=== PATIENT | male | born 1950 | race Caucasian/White ===

== ENCOUNTER 2021-02-27 19:07 | Inpatient (IN) | payer OTHER, MEDICAID, SELFPAY ==
[~2021-02-27] VITALS: Ht 177.8 cm; Wt 127.1 kg
[2021-02-27 19:07] VITALS: BP_SYST 120
--- NOTE | 2021-02-27 19:10 | NUR ---
Received patient to ER via EMS ambulance w/ c/o mis-firing of his defibrillator x2 (1 while cooking and #2 while at rest watching Television). Patient resting comfortably at this time in no acute distress. Bed to low position sr up. placed on direct casting operator, AV paced rhythm. Patient resting quietly. No acute distress noted. Vital signs within normal range.
[2021-02-27 19:56] LABS: EOSINOPHILS # (AUTO) 0.1 K/uL (0.0-0.4); HEMOGLOBIN 9.5 g/dL (14.0-18.0); MEAN CORPUSCULAR VOLUME 96 fL (79.0-98.0); MONOCYTES # (AUTO) 0.3 K/uL (0.0-1.0); NEUTROPHILS # (AUTO) 1.4 K/uL (1.8-7.7); WHITE BLOOD COUNT (AUTO) 2.3 K/uL (4.8-10.8)
[2021-02-27 20:05] LABS: BASOPHILS % (AUTO) 0.9 % (0.0-2.0); EOSINOPHILS % (AUTO) 3.6 % (0.0-4.0); HEMATOCRIT 27.7 % (36-54); LYMPHOCYTES # (AUTO) 0.6 K/uL (1.0-5.5); LYMPHOCYTES % (AUTO) 23.5 % (20.5-51.5); MEAN CORPUSCULAR HEMOGLOBIN 33 pg (27-31); MEAN CORPUSCULAR HGB CONC 34 % (32-36); MONOCYTES % (AUTO) 12.6 % (1.7-9.3); NEUTROPHILS % (AUTO) 59.4 % (40.0-70.0); PLATELET COUNT (AUTO) 90 K/uL (130-430); RED BLOOD CELL COUNT(AUTO) 2.88 MIL/uL (4.2-6.2); RED CELL DISTRIBUTION WIDTH 15.8 % (9.0-15.0)
[2021-02-27 20:22] LABS: CALCIUM 7.8 mg/dL (8.4-11.0); CREATININE 3.84 mg/dL (0.55-1.30); POTASSIUM 4.2 mmol/L (3.5-5.1)
[2021-02-27 20:27] LABS: ALBUMIN 2.3 g/dL (3.4-4.8); TOTAL BILIRUBIN 0.7 mg/dL (0.0-1.0)
--- NOTE | 2021-02-27 21:16 | NUR ---
Patient resting quietly. No acute distress noted. Vital signs within normal range.
[2021-02-27] MEDS ORDERED: HYDROcodone/ACETAMIN 5-325 MG TAB (NORCO/ VICODIN) PO PRN (22:30)
[2021-02-27] MEDS ORDERED: ACETAMINOPHEN 325 MG TABLET PO PRN (22:30)
[2021-02-27] MEDS ORDERED: ALBUTEROL SULFATE 0.083% 2.5 MG/3 ML VIAL.NEB INH PRN (22:30)
--- NOTE | 2021-02-27 23:11 | NUR ---
Patient resting quietly. No acute distress noted. Vital signs within normal range.
[2021-02-27] MEDS ORDERED: REPA0.5T6 PO (23:32)
[2021-02-27] MEDS ORDERED: COR12.5 PO (23:32)
[2021-02-27] MEDS ORDERED: FURO20TA4 PO (23:32)
[2021-02-27] MEDS ORDERED: LEVO50TA8 PO (23:32)
[2021-02-27] MEDS ORDERED: SAXA5TAB PO (23:32)
[2021-02-27] MEDS ORDERED: FENO145T PO (23:32)
[2021-02-27] MEDS ORDERED: APIX5TAB PO (23:32)
[2021-02-27] MEDS ORDERED: AMIO200T66 PO (23:32)
[2021-02-27] MEDS ORDERED: CHOL20009 PO (23:32)
[2021-02-27] MEDS ORDERED: ATOR40TA68 PO (23:32)
--- NOTE | 2021-02-27 23:32 | NUR ---
Medication reconciliation completed with information provided by patient's list. Any prior medication reconciliation on file was reviewed and corrected.
[2021-02-28] VITALS (8 sets, daily range): BP systolic 114–133
--- NOTE | 2021-02-28 00:31 | NUR ---
Patient will be admitted to care of Dr. Moody. Admitted to Telemetry OBS unit.
--- NOTE | 2021-02-28 01:08 | NUR ---
Patient resting quietly. No acute distress noted. Vital signs within normal range.
--- NOTE | 2021-02-28 01:46 | NUR ---
Patient will be admitted to care of MD Moody. Admitted to Tele/ob unit. Will go to room 128B. Belongings list completed. Complete and up to date summary report printed. SBAR report to be given at bedside with opportunity for questions.
--- NOTE | 2021-02-28 02:20 | NUR ---
Patient will be admitted to care of Fransisco. Admitted to tele/obs unit. Will go to room 128A. Belongings list completed. Complete and up to date summary report printed. SBAR report to be given at bedside with opportunity for questions.
--- NOTE | 2021-02-28 02:30 | NUR ---
pt.received via er-dept.pt.presents chf exacerbation.pt.presents h/d hx.h/d access location rt.svc.dsg intact.pt.present iv access location lt.hand iv lock.pt.stated he submitted to h/d session;.pt.weighed upon arrival per h/d protocol. pt.capable to reposition self/ambulate unassisted.diet status cardiac.pt.apprised snacks/beverages are available w/in the shift.general status stable.respiratory status stable;unlabored@room air.call light/telephone placed w/in access of the pt.
--- NOTE | 2021-02-28 02:36 | NUR ---
ADMISSION NOTE Received patient from ER via gurney. Patient admitted with diagnosis of Arrhythmia, CHF, Renal Failure. Patient is awake, alert, oriented X 4. Patient oriented to hospital room, call light, toileting, pain management and safety-teach back done. Patient informed that MILES Singh will be primary nurse and that their room number is 128A. Personal belongings checked and Belongings List documented. Call light within reach.
--- NOTE | 2021-02-28 04:36 | NUR ---
CONSULTATION PAGED/CALLED Reason for Consultation: ARRYTHMIA Person Who was Notified: AMY Consulting Physician: JULIA Infrastructure Technician Specialty: Ordering Physician: BRODERICK
[2021-02-28 06:24] LABS: EOSINOPHILS # (AUTO) 0.1 K/uL (0.0-0.4); EOSINOPHILS % (AUTO) 4.5 % (0.0-4.0); HEMATOCRIT 27.6 % (36-54); HEMOGLOBIN 9.4 g/dL (14.0-18.0); LYMPHOCYTES # (AUTO) 0.7 K/uL (1.0-5.5); LYMPHOCYTES % (AUTO) 24.5 % (20.5-51.5); MEAN CORPUSCULAR HEMOGLOBIN 33 pg (27-31); MEAN CORPUSCULAR HGB CONC 34 % (32-36); MEAN CORPUSCULAR VOLUME 97 fL (79.0-98.0); MONOCYTES # (AUTO) 0.4 K/uL (0.0-1.0); MONOCYTES % (AUTO) 12.2 % (1.7-9.3); NEUTROPHILS # (AUTO) 1.7 K/uL (1.8-7.7); NEUTROPHILS % (AUTO) 57.8 % (40.0-70.0); PLATELET COUNT (AUTO) 94 K/uL (130-430); RED BLOOD CELL COUNT(AUTO) 2.84 MIL/uL (4.2-6.2); RED CELL DISTRIBUTION WIDTH 16.1 % (9.0-15.0)
--- NOTE | 2021-02-28 06:30 | NUR ---
pt.stated he is diabetic.blood glucose assessed x3;values 66,68,69mg/dl.no insulin protocol ordered.pt.stated he was asymptomatic no weakness,thought process coherent.pt.refused snacks.to trace heartin am.v/s assessed values wnl.no c/o pain,nausea.no requests posited@this hour.call light/telephone w/in access of the pt.
[2021-02-28 06:38] LABS: ALBUMIN 2.2 g/dL (3.4-4.8); CALCIUM 7.7 mg/dL (8.4-11.0); CREATININE 4.12 mg/dL (0.55-1.30); POTASSIUM 4.2 mmol/L (3.5-5.1); TOTAL BILIRUBIN 0.8 mg/dL (0.0-1.0)
[2021-02-28] MEDS ORDERED: ATORVASTATIN 20 MG TABLET PO ONE (09:00)
[2021-02-28] MEDS ORDERED: LEVOTHYROXINE SODIUM 0.05 MG TABLET PO ONE (09:00)
[2021-02-28] MEDS ORDERED: CARVEDILOL 12.5 MG TABLET (COREG) PO ONE (09:00)
[2021-02-28] MEDS ORDERED: REPAGLINIDE 0.5 MG PO SCH (09:00)
[2021-02-28] MEDS ORDERED: APIXABAN 2.5 MG TABLET PO ONE (10:00)
[2021-02-28] MEDS ORDERED: AMIODARONE HCL 200 MG TABLET PO ONE (10:00)
[2021-02-28] MEDS ORDERED: FENOFIBRATE 160 MG TABLET PO ONE (10:00)
--- NOTE | 2021-02-28 10:34 | NUR ---
SPOKE TO DR BAUTISTA, NOTIFIED THAT PATIENT HAS HISTORY OF DIABETES BUT THAT MORNING BG WAS 69, STATED TO ORDER REGULAR INSULIN SLIDING SCALE ACHS, IN ADDITION TOLD HIM THAT PATIENT RECEIVED DIALYSIS SO IF HE WANTS TO GET NEPHROLOGY ON BOARD BUT PATIENT DOES NOT KNOW WHO HIS POLYGRAPH EXAMINER IS BUT THAT HE RECEIVES HIS DIALYSIS AT [facility], LILY STATED HE WILL ASSESS THE PATIENT AND GO FROM THERE.
[2021-02-28] MEDS ORDERED: DEXTROSE 50% JECT 50 ML DISP.SYRIN IVP PRN (10:45)
[2021-02-28] MEDS ORDERED: GLUCOSE (DEXTROSE) ORAL GEL -Adults PO PRN (10:45)
[2021-02-28] MEDS ORDERED: INSULIN REGULAR, HUMAN 100 UNITS/ML, 10 ML VIAL (humuLIN R) SUBCUT PRN (10:45)
[2021-02-28] MEDS ORDERED: D5W 1,000 ML IV PRN (10:45)
--- NOTE | 2021-02-28 11:12 | NUR ---
Nutrition Update Donald Scale 18 noted. Pt admitted for CHF, renal failure. Diet: cardiac BMI: 40 kg/m2 RD to follow per nutrition care standards.
--- NOTE | 2021-02-28 12:34 | NUR ---
CONSULTATION PAGED/CALLED Reason for Consultation: ESRD Person Who was Notified:TIARRA Consulting Physician: SAGAR Spray Stainer Specialty: NEPHRO Ordering Physician: LILY
--- NOTE | 2021-02-28 13:49 | NUR ---
CONSULTATION PAGED/CALLED Reason for Consultation: [] ESRD Person Who was Notified: [] SHERRI Consulting Physician: [] DR FRAZIER Retail Product Advisor Specialty: [] ASSOCIATE DIRECTOR QA Ordering Physician: [] DR BAUTISTA
--- NOTE | 2021-02-28 19:15 | NUR ---
OPENING NOTES: Received patient report from morning shift nurse. Patient in bed, AAOx4, breathing evenly and nonlabored on room air, no s/s of distress. Patient has an IV on the LH 22G, patent, benign, and flushing. No s/s of infection or infiltration. Educated patient on plan of care and call light use. Patient verbalized understanding with return demonstration. Fall/safety precaution. Will continue to monitor.
[2021-02-28] MEDS: APIXABAN 2.5 MG TABLET PO SCH (21:29)
[2021-02-28] MEDS: CARVEDILOL 12.5 MG TABLET (COREG) PO SCH (21:31)
[2021-02-28] MEDS: AMIODARONE HCL 200 MG TABLET PO SCH (21:31)
[2021-03-01] VITALS: BP_SYST 128
--- NOTE | 2021-03-01 | NUR ---
ROUNDS: Patient in bed, eyes closed, breathing evenly and nonlabored on room air, no s/s of distress. Will continue to monitor.
[2021-03-01 06:19] LABS: BASOPHILS % (AUTO) 0.9 % (0.0-2.0); EOSINOPHILS # (AUTO) 0.1 K/uL (0.0-0.4); EOSINOPHILS % (AUTO) 4.3 % (0.0-4.0); HEMATOCRIT 27.3 % (36-54); HEMOGLOBIN 9.1 g/dL (14.0-18.0); LYMPHOCYTES # (AUTO) 0.8 K/uL (1.0-5.5); LYMPHOCYTES % (AUTO) 25.5 % (20.5-51.5); MEAN CORPUSCULAR HEMOGLOBIN 33 pg (27-31); MEAN CORPUSCULAR HGB CONC 34 % (32-36); MEAN CORPUSCULAR VOLUME 98 fL (79.0-98.0); MONOCYTES # (AUTO) 0.3 K/uL (0.0-1.0); NEUTROPHILS # (AUTO) 1.8 K/uL (1.8-7.7); NEUTROPHILS % (AUTO) 59.3 % (40.0-70.0); PLATELET COUNT (AUTO) 91 K/uL (130-430); RED BLOOD CELL COUNT(AUTO) 2.79 MIL/uL (4.2-6.2); RED CELL DISTRIBUTION WIDTH 15.9 % (9.0-15.0); WHITE BLOOD COUNT (AUTO) 3.1 K/uL (4.8-10.8)
--- NOTE | 2021-03-01 06:57 | NUR ---
CLOSING NOTES: Patient in bed, AAOx4, breathing evenly and nonlabored on room air, no s/s of distress. Patient has an IV on the LH 22G, patent, benign, and flushing. No s/s of infection or infiltration. Fall/safety precaution. Will continue to monitor and endorse care to morning shift nurse.
[2021-03-01] MEDS ORDERED: LEVOTHYROXINE SODIUM 0.05 MG TABLET PO SCH (07:00)
[2021-03-01 07:06] LABS: ALBUMIN 2.1 g/dL (3.4-4.8); CALCIUM 7.4 mg/dL (8.4-11.0); CREATININE 4.88 mg/dL (0.55-1.30); PHOSPHORUS 4.7 mg/dL (2.7-4.5); POTASSIUM 4.4 mmol/L (3.5-5.1); TOTAL BILIRUBIN 1.1 mg/dL (0.0-1.0)
--- NOTE | 2021-03-01 07:25 | NUR ---
Opening Notes Patient is awake, alert and oriented x4. No resp distress noted. Breathing is even and unlabored. Pt denies any pain at this time. Pt denies any chest pain. Pacemaker noted on left upper chest, intact at this time. Cardiac monitoring, VPACED, HR @ 80 BPM. IV site on left hand 22 gauge intact at this time, saline lock. Dressing clean and dry, flushing well. Permacath, right subclavian noted on right upper chest, dressing clean and dry. Pt was educated on plan of care: observation status, confirm pacemaker function, dialysis today. Pt aware and agreed. Will continue to monitor.
[2021-03-01 08:00] VITALS: BP_SYST 122
[2021-03-01] MEDS: AMIODARONE HCL 200 MG TABLET PO SCH (08:50)
[2021-03-01] MEDS: CARVEDILOL 12.5 MG TABLET (COREG) PO SCH (08:50)
[2021-03-01] MEDS: APIXABAN 2.5 MG TABLET PO SCH (08:51)
[2021-03-01] MEDS ORDERED: FENOFIBRATE 160 MG TABLET PO SCH (09:00)
[2021-03-01] MEDS ORDERED: ATORVASTATIN 20 MG TABLET PO SCH (09:00)
[2021-03-01] MEDS ORDERED: MEXILETINE HCL 150 MG CAPSULE PO SCH (09:45)
--- NOTE | 2021-03-01 10:00 | NUR ---
Notes Patient is sitting up in bed, resting at this time. Nurse assisted patient to the bathroom, patient is ambulatory, supervision needed. No resp distress noted. Breathing is even and unlabored. Pt denies any pain. Pending dialysis session.
[2021-03-01 12:00] VITALS: BP_SYST 126
--- NOTE | 2021-03-01 12:00 | NUR ---
Hemodialysis Started Patient is laying in bed, resting at this time. Alert and oriented x4. Dialysis is starting at this time. No acute distress. Will continue to monitor.
--- NOTE | 2021-03-01 14:00 | NUR ---
Dialysis still in session. NO acute distress noted. No signs of pain. Will continue to monitor.
[2021-03-01 16:00] VITALS: BP_SYST 128
[2021-03-01 16:36] VITALS: BP_SYST 128
[2021-03-01] MEDS ORDERED: HEPARIN SODIUM,PORCINE 5,000 UNITS/ML VIAL IV ONE ×2 (16:45)
--- NOTE | 2021-03-01 16:45 | NUR ---
Dialysis complete- 2 liters output.
--- NOTE | 2021-03-01 16:57 | NUR ---
HIGH ALERT NOTE: Received one time order from Dr. Wright for Heparin 5,000 units x2 for hemodialysis port. Noted and carried out. Gave Heparin vials to dialysis nurse to complete dialysis. Will continue to monitor.
--- NOTE | 2021-03-01 18:56 | NUR ---
D/C Patient Patient given medication reconciliation form and D/C instructions. Exit Care provided. Patient verbalized understanding. MD discussed with patient the results and treatment provided. Ambulatory with steady gait for discharge to home. Patient in stable condition, ID band removed. IV catheter removed, intact and dressing applied, no active bleeding. Patient was educated that d/t his CHF condition he will need to follow up with his hospice educator after DC. Per pt, "I already scheduled an appt with my cardio doctor but its not until May next year, that is the only time I could get in." Notified charge nurse. Patient educated on pain management. All belongings sent with patient.
== END 2021-03-01 18:56 | disposition home or self-care (01) | DRG 313 ==
LOC: SED 19:07 → STU 22:21 → OBSVTOIN 02-28 11:13
PROVIDERS: ADMIT Internal Medicine Hospice and Palliative Medicine; ATTEND Internal Medicine Hospice and Palliative Medicine
PROC: 5A1D70Z Performance of Urinary Filtration, Intermittent, Less than 6 Hours Per Day (ICD-10-PCS; principal; 2021-02-28)
DX: R07.89 Other chest pain (principal); N18.6 End stage renal disease; I42.0 Dilated cardiomyopathy; I48.20 Chronic atrial fibrillation, unspecified; I13.2 Hypertensive heart and chronic kidney disease with heart failure and with stage 5 chronic kidney disease, or end stage renal disease; Z68.41 Body mass index [BMI] 40.0-44.9, adult; Z20.822 Contact with and (suspected) exposure to COVID-19; E66.01 Morbid (severe) obesity due to excess calories; D63.1 Anemia in chronic kidney disease; G25.0 Essential tremor; I50.9 Heart failure, unspecified; E11.22 Type 2 diabetes mellitus with diabetic chronic kidney disease; Z95.810 Presence of automatic (implantable) cardiac defibrillator; Z99.2 Dependence on renal dialysis; Z87.442 Personal history of urinary calculi; Z90.5 Acquired absence of kidney; Y92.89 Other specified places as the place of occurrence of the external cause
CPT/HCPCS: 36415; 71045; 80053; 82962; 83880; 84100; 84484; 85025; 87081; 90935; 93005; 93306; 99285; G0378; J1644

== ENCOUNTER 2021-11-14 12:11 | Emergency (ER) | payer OTHER, MEDICAID ==
[~2021-11-14] VITALS: Ht 167.6 cm; Wt 131.5 kg
[~2021-11-14 12:11] MED LIST: AMIO200T66 PO; APIX5TAB PO; ATOR40TA68 PO; CHOL200059 PO; COR12.5 PO; FENO145T PO; FURO20TA4 PO; LEVO50TA8 PO; REPA0.5T6 PO; SAXA5TAB PO
[2021-11-14 12:13] VITALS: BP_SYST 138
[2021-11-14 16:28] LABS: BASOPHILS % (AUTO) 0.7 % (0.0-2.0); EOSINOPHILS # (AUTO) 0.2 K/uL (0.0-0.4); EOSINOPHILS % (AUTO) 3.7 % (0.0-4.0); HEMATOCRIT 36.8 % (36-54); HEMOGLOBIN 12.4 g/dL (14.0-18.0); LYMPHOCYTES # (AUTO) 0.8 K/uL (1.0-5.5); LYMPHOCYTES % (AUTO) 15.3 % (20.5-51.5); MEAN CORPUSCULAR HEMOGLOBIN 32 pg (27-31); MEAN CORPUSCULAR HGB CONC 34 % (32-36); MEAN CORPUSCULAR VOLUME 96 fL (79.0-98.0); MONOCYTES # (AUTO) 0.5 K/uL (0.0-1.0); MONOCYTES % (AUTO) 10.5 % (1.7-9.3); NEUTROPHILS # (AUTO) 3.5 K/uL (1.8-7.7); NEUTROPHILS % (AUTO) 69.8 % (40.0-70.0); PLATELET COUNT (AUTO) 108 K/uL (130-430); RED BLOOD CELL COUNT(AUTO) 3.86 MIL/uL (4.2-6.2); RED CELL DISTRIBUTION WIDTH 14.8 % (9.0-15.0)
--- NOTE | 2021-11-14 16:50 | NUR ---
Labs at bedside
--- NOTE | 2021-11-14 16:53 | NUR ---
Patient to ER bed 04 to gown for evaluation. Side rails up. Report given to MILES Miller/ MILES Santos
--- NOTE | 2021-11-14 16:55 | NUR ---
Radiology at bedside.
--- NOTE | 2021-11-14 17:00 | NUR ---
Patient MOJGAN from home for c/o weeping wound on LLE secondary to 5 water bisters. Patient states "My home health nurse came over today to do my wound care on my left leg and she noticed that I had 5 new blisters and said I should get them checked out." Patient A/Ox4, VSS, resp even and unlabored. NAD noted at this time. Will continue to monitor patient.
[2021-11-14 17:04] LABS: INR 1.5 (0.80-1.20); PROTHROMBIN TIME 14.5 SECS (9.5-12.5)
[2021-11-14 17:10] LABS: CALCIUM 8.2 mg/dL (8.4-11.0); CREATININE 6.22 mg/dL (0.55-1.30); POTASSIUM 4.3 mmol/L (3.5-5.1)
[2021-11-14 17:20] LABS: ALBUMIN 2.4 g/dL (3.4-4.8); C-REACTIVE PROTEIN QUANT 2.6 mg/dL (0-0.5); TOTAL BILIRUBIN 0.5 mg/dL (0.0-1.0)
[2021-11-14 17:34] VITALS: BP_SYST 112
--- NOTE | 2021-11-14 18:00 | NUR ---
SUNIL PICHARDO at bedside.
--- NOTE | 2021-11-14 18:58 | NUR ---
Patient given written and verbal discharge instructions and verbalizes understanding. ER MD discussed with patient the results and treatment provided. Patient in stable condition. ID arm band removed. Patient educated on pain management and to follow up with PMD. Pain Scale 0/10. Opportunity for questions provided and answered. Patient A/Ox4, Resp even and unlabored. Nad noted at this time.
--- NOTE | 2021-11-14 19:10 | NUR ---
Called patient's alonso De Loen per patient request to come and pick him up. Alonso De Leon answered the phone and stated she would be coming in to pick him up.
== END 2021-11-14 17:34 | disposition home or self-care (01) ==
LOC: SED 12:11
DX: R60.0 Localized edema (principal); Z88.0 Allergy status to penicillin; Z79.899 Other long term (current) drug therapy
CPT/HCPCS: 36415; 71045; 73590-TC; 80053; 83605; 85025; 85610-TC; 85730-TC; 86140; 99284